=== PATIENT | male | born 2000 | race Caucasian/White ===

== ENCOUNTER 2024-02-11 01:23 | Emergency (ER) | payer OTHER, SELFPAY ==
[2024-02-11 01:36] VITALS: BP 140/90; PULSE 74; RESP 16; TEMP 36.5; O2SAT 98
--- NOTE | 2024-02-11 01:47 | DI.RAD.S_ITS ---
PROCEDURE: XR FINGER LT MIN 2V INDICATIONS: cat bite TECHNIQUE: AP hand, 2 views of the 2nd finger(s) acquired. COMPARISON: [facility], [place], FINGER RT, 02/11/2017, 20:07. FINDINGS: Bones: No displaced fracture or dislocation. Soft tissues: No radiopaque foreign body. Possible soft tissue swelling. IMPRESSION: No acute radiographic abnormality. If there is high concern for occult injury, consider repeat radiography or cross-sectional imaging. Agree with prelim report. Dictated by: Andrew Pink M.D. on 02/11/2024 at 9:02 Approved by: Andrew Pink M.D. on 02/11/2024 at 9:03
--- NOTE | 2024-02-11 04:37 | ED.ANIMALBIT ---
HPI - Animal Bite General Chief Complaint: Animal Bite Stated Complaint: Bilateral hand injuries from cat Time Seen by Provider: 02/11/24 04:23 Source: patient Mode of arrival: Ambulatory Limitations: no limitations History of Present Illness HPI narrative: 23-year-old male smoker with no other reported medical issues presents with complaint of cat bite to the left hand as well as multiple scratches and abrasions from a cat bilateral upper extremities. Patient was at work and he was tossing a bag of garbage in the dumpster. When a cap popped out that was apparently hit by the bag and attacked him. He states he has multiple scratches to his upper extremities it did bite him on the left hand palmar side adjacent to the 2nd knuckle. Patient states he has a little bit of pain at full range of motion no numbness tingling or weakness. There is some redness right at the site of the bite. He states no other injuries. He is unsure of his tetanus status. States no daily medications. No known drug allergies. Denies any major prior surgeries. Does use tobacco daily, drinks alcohol, uses marijuana. Patient was at work when this occurred. Related Data Previous Rx's Medication Instructions Recorded amoxicillin 875 mg-potassium 875 mg PO BID #20 tabs 07/24/17 clavulanate 125 mg tablet (Augmentin) amoxicillin 875 mg-potassium 1 tab PO BID #20 tabs 02/11/24 clavulanate 125 mg tablet Allergies Allergy/AdvReac Type Severity Reaction Status Date / Time No Known Drug Allergies Allergy Verified 02/11/24 01:36 Review of Systems Review of Systems ROS Unobtainable: All systems reviewed & are unremarkable except as noted in HPI and below Patient History Social History Smoking Status: Current every day smoker Smoking Status: Current every day smoker alcohol intake frequency: 0-2 drinks per day Substance Use Type: marijuana Exam Narrative Exam Narrative: GENERAL: Alert and oriented x three, male in mild distress. HEENT: Head normocephalic, atraumatic, EOMI, pupils reactive, face symmetric, moist mucous membranes NECK: Supple, full range of motion CARDIOVASCULAR: Regular rate and rhythm without murmurs, rubs or gallops. RESPIRATORY: Breath sounds equal bilaterally, no wheezes rales or rhonchi. ABDOMEN: Soft, nontender. Normoactive bowel sounds all 4 quadrants. No guarding or rebound, rigidity, no mass EXTREMITIES: Normal range of motion, no clubbing or edema. Neurovascularly intact. Patient has multiple superficial lacerations bilateral hands and upper extremities. He does not have what appears to be a puncture wound on the palmar side of his hand that has some erythema, no drainage, there is but of course of erythema around the area. No erythema tracking finger. He has good range of motion, no tenderness over the finger or palm. No other bony tenderness. Cap refills less than 2 seconds in all 10 fingers. 2+ radial pulses. 5/5 muscle strength with normal flexion, extension adduction and abduction of all 10 fingers. NEUROLOGICAL: Cranial nerves II through XII grossly intact. Moving all extremities SKIN: Warm, dry, no petechiae, no rashes or lesions otherwise noted. Initial Vital Signs Initial Vital Signs: Vital Signs Temperature 97.7 F 02/11/24 01:36 Pulse Rate 74 02/11/24 01:36 Respiratory Rate 16 02/11/24 01:36 Blood Pressure 140/90 02/11/24 01:36 Pulse Oximetry 98 02/11/24 01:36 Oxygen Delivery Method Room Air 02/11/24 01:36 Course Orders Ordered: ED Orders 02/11/24 01:47 XR finger LT min 2V Stat Discontinued Medications Amoxicillin/Clavulanate Potassium (Amoxicillin/Clav 875/125 Mg) 1 tab PO NOW ONE Stop: 02/11/24 04:49 Last Admin: 02/11/24 04:53 Dose: 1 tab Documented By: NYASIA Diphtheria/Tetanus/Acell Pertussis (Tet,Diph,Pertuss(Acell),Vac/Pf 0.5 Ml Syringe) 0.5 ml IM .ONCE ONE Stop: 02/11/24 04:46 Last Admin: 02/11/24 04:54 Dose: 0.5 ml Documented By: NYASIA Vital Signs Vital signs: Vital Signs - 8 hr 02/11/24 01:36 02/11/24 04:46 Temperature 97.7 F Pulse Rate 74 75 Respiratory Rate 16 18 Blood Pressure 140/90 129/75 Pulse Oximetry 98 98 Oxygen Delivery Method Room Air Room Air MDM - Animal Bite Imaging Data Extremity x-ray #1: Radiologist's Impression: No acute osseous abnormality no radiopaque foreign body, questionable mild soft tissue swelling proximal 2nd digit. MDM Narrative Medical decision making narrative: 23-year-old male with bilateral scratches and bite to the left hand CT in a dumpster when he threw a bag of garbage on top of it. Patient does have 1 puncture wound appreciable on the palms I have his hand has some mild erythema. [place] signs are negative. Patient is high-risk for infection was started on Augmentin. Tetanus was updated. Discussed return precautions all questions answered. Discharge Plan Departure Patient Disposition: Home Clinical Impression: Cat bite, Laceration of multiple sites of hand and fingers Instructions: DI for Cat Bite Activity Restrictions/Additional Instructions: Follow up for recheck in the next 24-48 hours if you are not having any improvement of redness or swelling or pain. Take antibiotics until completed. Take 1 tablet every 12 hours. Prescription was sent to [facility] pharmacy in [place]. You can put a triple antibiotic ointment over the lacerations and cat bite. Can put this on twice daily as needed. Wound Care: Keep wound(s) clean and dry. Wash daily with soap and water only. If wound condition worsens (increased/expanding redness, developing fluid blisters, or worsening pain), either contact your doctor for an urgent re-assessment , or return to the Emergency Department. Return if fever greater than 100.4 Fahrenheit, increased swelling, increasing pain or worsening symptoms such as increased discharge or spreading redness. Prescriptions: New amoxicillin-pot clavulanate 875-125 mg tablet 1 tab PO BID Qty: 20 0RF No Action amoxicillin-pot clavulanate [Augmentin] 875 MG/125 MG tablet 875 mg PO BID Qty: 20 0RF Stand Alone Forms: Patient Portal/API
[2024-02-11 04:46] VITALS: BP 129/75; PULSE 75; RESP 18; O2SAT 98
[2024-02-11] MEDS: AMOXICILLIN/CLAV 875/125 MG 1 TAB PO (04:53)
[2024-02-11] MEDS: TET,DIPH,PERTUSS(ACELL),VAC/PF 0.5 ML SYRINGE IM (04:54)
== END 2024-02-11 05:44 | disposition home or self-care (01) ==
PROVIDERS: Emergency Provider Emergency Medicine
DX: S61.452A Open bite of left hand, initial encounter (principal); S41.112A Laceration without foreign body of left upper arm, initial encounter; S41.111A Laceration without foreign body of right upper arm, initial encounter; W55.01XA Bitten by cat, initial encounter; Z23 Encounter for immunization; Y99.0 Civilian activity done for income or pay
CPT/HCPCS: 73140; 90471; 99283; 90715

== ENCOUNTER 2024-11-08 18:53 | Emergency (ER) | payer OTHER, SELFPAY ==
[2024-11-08] VITALS (12 sets, daily range): BP systolic 137–150; BP diastolic 66–94; PULSE 94–120; RESP 18–24; TEMP 36.8–37.2; O2SAT 94–97; BMI 22.6
--- NOTE | 2024-11-08 19:31 | DI.RAD.S_ITS ---
PROCEDURE: XR CHEST 1V INDICATIONS: suspected sepsis TECHNIQUE: One view of the chest was acquired. COMPARISON: None. FINDINGS: Surgical changes and devices: None. Lungs and pleura: Mild left mid and lower lung zone opacities. No pleural effusions or pneumothorax. Mediastinum: Mediastinal contours appear normal. Heart size is normal. Bones and chest wall: No suspicious bony lesions. Overlying soft tissues appear unremarkable. IMPRESSION: Mild left mid to lower lung zone opacities are suspicious for pneumonia. Approved by: Clement Perrin M.D. on 11/08/2024 at 20:03
--- NOTE | 2024-11-08 19:39 | EKG_ITS ---
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
[2024-11-08 20:13] LABS: Add Manual Diff / Slide Review NO; Basophils Absolute Auto 100 /uL (0-100); Basophils Percent Auto 0.4 % (0-2); Eosinophils Absolute Auto 200 /uL (0-450); Eosinophils Percent Auto 1.4 % (2-4); Hematocrit 32.7 % (41-53); Hemoglobin 11.1 g/dL (13.5-17.5); Lymphocytes Absolute Auto 3200 /uL (1100-4500); Lymphocytes Percent Auto 23.2 % (25-40); Mean Corpuscular Hemoglobin 33.8 PG (26-34); Mean Corpuscular Volume 99.6 fL (80-100); Monocytes Absolute Auto 1000 /uL (0-900); Monocytes Percent Auto 6.9 % (3-14); Neutrophils Absolute Auto 9400 /uL (1500-7000); Neutrophils Percent Auto 68.1 % (50-75); Platelet Count 800 X10^3/uL (150-400); Red Blood Cell Count 3.28 X10^6/uL (4.5-5.9); Red Cell Distribution Width 12.7 % (11.6-14.8); White Blood Cell Count 13.8 X10^3/uL (4.5-11.0)
[2024-11-08] MEDS: SODIUM CHLORIDE 0.9% 1,000 ML 1000 ML IV (20:15)
[2024-11-08 20:18] LABS: INR 1.1 (0.9-1.3); Prothrombin Time 12.3 SECONDS (9.4-12.5)
[2024-11-08 20:21] LABS: PTT Partial Thromboplastin Tim 36 SECONDS (25.1-36.5)
[2024-11-08 20:24] LABS: Alanine Aminotransferase 84 IU/L (<50); Albumin Globulin Ratio 1.2 (1.0-2.8); Alkaline Phosphatase 154 U/L (38-126); Aspartate Aminotransferase 56 IU/L (17-59); BUN Creatinine Ratio 10.6 (6-22); Bilirubin Total 0.7 mg/dL (0.2-1.3); Blood Urea Nitrogen 7 mg/dL (9-20); Calcium 9.3 mg/dL (8.4-10.2); Carbon Dioxide 25 mmol/L (22-32); Chloride 102 mmol/L (98-107); Estimated Glomerular Filt Rate > 60 mL/min (>60); Globulin 3.4 g/dL (1.7-4.1); Glucose 103 mg/dL (70-100); HEMOLYSIS < 15 (0-50); Lipase 55 U/L (23-300); Potassium 3.4 mmol/L (3.4-5.1); Sodium 138 mmol/L (137-145); Total Protein 7.4 g/dL (6.3-8.2)
[2024-11-08 20:26] LABS: Lactate (Lactic Acid) 0.9 mmol/L (0.7-2.1)
[2024-11-08 20:42] LABS: Hypochromasia 1+; Stomatocytes 1+
[2024-11-08 20:43] LABS: Procalcitonin 0.161 ng/mL (<0.5)
[2024-11-08 22:37] LABS: Bacteria Urine None Seen; Culture Indicated Urine Cult Not Indicated; RBC Urine None Seen (0-5/HPF); Sperm Urine 1+; Squamous Epithelial Cell Urine 0-1 /HPF (0-5/HPF); Urine Volume 10mL (spun); WBC Urine None Seen (0-5/HPF)
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
[2024-11-08] MEDS: DOXYCYCLINE 100 MG in SODIUM CHLORIDE 0.9% 100 ML IV (23:15)
[2024-11-08] MEDS: MORPHINE 4 MG/ML INJ IV (23:15)
[2024-11-08] MEDS: cefTRIAXone 2,000 MG in SODIUM CHLORIDE 0.9% 100 ML 200 MG IV (23:16)
[2024-11-09] VITALS: BP 136/85; PULSE 89; RESP 19; O2SAT 93
== END 2024-11-09 00:30 | disposition home or self-care (01) ==
PROVIDERS: Emergency Provider Student in an Organized Health Care Education/Training Program
DX: J18.9 Pneumonia, unspecified organism (principal); T81.49XA Infection following a procedure, other surgical site, initial encounter
CPT/HCPCS: 36415; 71045; 80053; 81003; 81015; 83605; 83690; 84145; 85025; 85610; 85730; 87040; 87070; 87075; 87077; 87147; 87186; 87205; 93005; 93010; 96361; 96365; 96368; 96375; 99284; J0696; J2270

== ENCOUNTER 2025-02-23 01:03 | Emergency (ER) | payer MEDICAID, SELFPAY ==
[2025-02-23 01:14] VITALS: BP 144/84; PULSE 94; RESP 16; TEMP 36.9; O2SAT 97; BMI 25.7
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
== END 2025-02-23 02:36 | disposition home or self-care (01) ==
PROVIDERS: Emergency Provider Emergency Medicine
DX: S01.511A Laceration without foreign body of lip, initial encounter (principal); W39.XXXA Discharge of firework, initial encounter
CPT/HCPCS: 99283